=== PATIENT | female | born 1995 | race Hispanic/Latino ===

== ENCOUNTER 2024-12-28 13:26 | Inpatient (IN) | payer MEDICAID, OTHER, SELFPAY ==
[2025-01-01] MEDS ORDERED: Methylergonovine 0.2 MG/ML VIAL IM PRN (06:20)
[2025-01-01] MEDS ORDERED: Carboprost 250 MCG/ML AMP IM PRN (06:20)
[2025-01-01] MEDS ORDERED: Tranexamic Acid 1,000 MG/10 ML VIAL IVP PRN (06:20)
[2025-01-01] MEDS ORDERED: Ondansetron PF 4 MG/2 ML Vial IVP PRN ×2 (06:20→13:31)
[2025-01-01] MEDS ORDERED: hydrALAZINE 20 MG/ML VIAL SLOW IVP PRN ×2 (06:20→13:31)
[2025-01-01] MEDS ORDERED: Lidocaine 1% (PF) 30 ML VIAL SC PRN (06:20)
[2025-01-01] MEDS ORDERED: Ibuprofen 800 MG TAB PO PRN (06:20)
[2025-01-01] MEDS ORDERED: HYDROcodone/Acetaminophen 5/325 mg Tablet PO PRN (06:20)
[2025-01-01] MEDS ORDERED: Oxytocin 30 units/NS 500 ML 500 ML IV SCH ×2 (06:20)
[2025-01-01] MEDS ORDERED: Diphenoxylate HCl/Atropine Tablet PO PRN (06:20)
[2025-01-01] MEDS ORDERED: Acetaminophen 500 MG TAB PO PRN (06:20)
[2025-01-01 06:40] VITALS: BMI 32.1
[2025-01-01 07:17] LABS: Hematocrit 38.6 % (34.9-44.5); Hemoglobin 13.4 g/dL (12.0-15.5); Mean Corpuscular Hemoglobin 29.3 pg (27.0-33.0); Mean Corpuscular Volume 84.5 fL (81.6-98.3); Platelet Count 212 10x3/uL (150-450); Red Blood Cell (RBC) Count 4.57 10x6/uL (3.90-5.03); White Blood Cell (WBC) Count 10.79 10x3/uL (3.5-10.5)
[2025-01-01] MEDS: Oxytocin 30 units/NS 500 ML 500 ML IV SCH (07:31)
[2025-01-01] MEDS: Penicillin G Potassium 5 MILL.UNITS VIAL ONE (07:32)
[2025-01-01 07:40] LABS: Syphilis Antibody Index 0.05 S/CO (<1.00 Non-Reactive)
[2025-01-01 07:43] LABS: Hep B Surf Ag - L&D Non-Reactive S/CO (NonReactive)
[2025-01-01] MEDS ORDERED: diphenhydrAMINE 25 MG CAP PO PRN (13:31)
[2025-01-01] MEDS ORDERED: Benzocaine-Menthol 82.5 ML CAN TOP PRN (13:31)
[2025-01-01] MEDS ORDERED: Milk Of Magnesia 30 ML UDCUP PO PRN (13:31)
[2025-01-01] MEDS ORDERED: Bisacodyl 10 MG SUPP PR PRN (13:31)
[2025-01-01] MEDS ORDERED: Lanolin Ointment 7 GM TUBE TOP PRN (13:31)
[2025-01-01] MEDS: Oxytocin 30 units/NS 500 ML 0 ML ONE (14:17)
[2025-01-01] MEDS: Carboprost 250 MCG/ML AMP ONE (14:17)
[2025-01-01] MEDS: Boostrix 0.5 ML (Tdap) VIAL (>/=7 yrs of age) IM ONE (14:17)
[2025-01-01] MEDS: Methylergonovine 0.2 MG/ML VIAL ONE (14:17)
[2025-01-01] MEDS: Ibuprofen 800 MG TAB PO SCH (14:47)
[2025-01-01] MEDS: Ferrous Sulfate 325 MG TAB PO SCH (16:12)
[2025-01-01] MEDS: HYDROcodone/Acetaminophen 5/325 mg Tablet PO PRN (19:22)
[2025-01-02 09:36] VITALS: BP 103/55; TEMP 98
== END 2025-01-02 18:00 | disposition home or self-care (01) | DRG 807 ==
LOC: CSHLD 01-01 05:42 → CSHPED 01-01 13:58
PROVIDERS: ADMIT Family Medicine; ATTEND Family Medicine
PROC: 3E033VJ Introduction of Other Hormone into Peripheral Vein, Percutaneous Approach (ICD-10-PCS; principal; 2025-01-01)
PROC: 10907ZC Drainage of Amniotic Fluid, Therapeutic from Products of Conception, Via Natural or Artificial Opening (ICD-10-PCS; principal; 2025-01-01)
PROC: 10E0XZZ Delivery of Products of Conception, External Approach (ICD-10-PCS; principal; 2025-01-01)
DX: O48.0 Post-term pregnancy (principal); Z37.0 Single live birth; Z3A.40 40 weeks gestation of pregnancy
CPT/HCPCS: 36415; 85027; 86780; 86850; 86900; 86901; 87340; J2540; J2590